=== PATIENT | female | born 1985 | race Caucasian/White ===

== ENCOUNTER 2024-01-06 05:38 | Day surgery (SDC) | payer MEDICARE, MEDICAID ==
[2024-01-04 15:04] LABS: BILIRUBIN,URINE NEGATIVE (Neg); CLARITY,URINE SLIGHTLY CLOUDY (Clear); COLOR,URINE YELLOW (Yellow); GLUCOSE, URINE NEGATIVE (Neg); KETONES,URINE TRACE mg/dl (Neg); LEUKOCYTE ESTERASE ,URINE NEGATIVE (Neg); NITRITES, URINE NEGATIVE (Neg); OCCULT BLOOD,URINE NEGATIVE (Neg); PH,URINE 6.5 (4.8-8.0); PROTEIN,URINE NEGATIVE (Neg)
[2024-01-04 15:05] LABS: BASOPHILS # (AUTO) 0.1 X10'3 (0-0.2); BASOPHILS % (AUTO) 0.7 % (0-1); EOSINOPHILS # (AUTO) 0.2 X10'3 (0-0.9); EOSINOPHILS % (AUTO) 1.9 % (0-6); LYMPHOCYTES # (AUTO) 4.2 X10'3 (1.1-4.8); LYMPHOCYTES % (AUTO) 48.5 % (21-51); MEAN CORPUSCULAR HEMOGLOBIN 29.4 PG (27.0-31.0); MEAN CORPUSCULAR HGB CONC 34.7 g/dL (33.0-36.5); MEAN CORPUSCULAR VOLUME 84.8 FL (78-98); MEAN PLATELET VOLUME 8.4 FL (7.4-10.4); MONOCYTES # (AUTO) 0.6 X10'3 (0-0.9); MONOCYTES % (AUTO) 7.4 % (2-12); NEUTROPHILS # (AUTO) 3.6 X10'3 (1.8-7.7); NEUTROPHILS % (AUTO) 41.5 % (42-75); PRE OP HEMOGLOBIN 14.6 g/dL (12.0-16.0); PRE OP PLATELET COUNT 227 X10'3 (140-440); PRE OP WHITE BLOOD COUNT 8.7 10'3 (4.8-10.8); RED BLOOD COUNT 4.96 X10'6 (4.20-5.60)
[2024-01-04 15:12] LABS: UA COLLECTION TYPE CLN CATCH MIDSTREAM
[2024-01-04 15:18] LABS: SQUAMOUS EPITHELIAL CELL,UR MANY /LPF (FEW)
[2024-01-04 15:19] LABS: WBC,URINE 30-50 /HPF (0-4)
[2024-01-04 15:24] LABS: ALBUMIN 3.5 G/DL (3.4-5.0); ALBUMIN/GLOBULIN RATIO 0.8 (1.1-1.5); ALKALINE PHOSPHATASE 55 IU/L (46-116); BLOOD UREA NITROGEN 17 MG/DL (7-18); BUN/CREATININE RATIO 15.9 (10.0-20.0); CHLORIDE 107 MMOL/L (99-107); CREATININE 1.07 MG/DL (0.40-0.90); PRE OP ALT 18 U/L (30-65); PRE OP ANION GAP 13 (8-16); PRE OP AST 12 U/L (10-37); PRE OP BILIRUB, TOTAL 0.4 MG/DL (0.0-1.0); PRE OP GLUCOSE 88 MG/DL (70-104); PRE OP POTASSIUM 3.9 MMOL/L (3.4-5.1); PRE OP SODIUM 140 MMOL/L (135-145); TOTAL CARBON DIOXIDE 20.4 MMOL/L (24-32); TOTAL PROTEIN 7.7 G/DL (6.4-8.2); eGFR 57 ML/MIN
[2024-01-04 15:25] LABS: BACTERIA,URINE 2+ /HPF (Neg)
[2024-01-04 15:26] LABS: RBC,URINE NONE SEEN /HPF (0-2)
[~2024-01-06] VITALS: Ht 154.9 cm; Wt 102.4 kg
[2024-01-06] VITALS (16 sets, daily range): BP systolic 103–119; BP diastolic 60–79; PULSE 64–88; RESP 14–30; TEMP 98.6; O2SAT 98–100
[~2024-01-06 05:38] MED LIST: ALBU8HFA INH; BUDE10.2 INH; CYCL-1 PO; DIAZ10TA5 PO; DOCU100C40 PO; DOCUMENT DATE & TIME OF BETA-BLOCKER PO ONE; FLUO20CA39 PO; IPRA4AER IH; KETAMINE IV; LAMO25TA5 PO; METO50TA16 PO; NORE-142 PO; PRAZ5CAP2 PO; QUET200T31 PO; QUET400T13 PO; TOPI-95 PO; ZOLP5TAB2 PO; albuterol 2.5 MG/3 ML nebule NEB ONE
[2024-01-06] MEDS: famotidine 20mg tablet PO ONE (06:26)
[2024-01-06] MEDS: clindamycin-Cleocin 900mg/D5W 50 ML IV ONE (06:27)
[2024-01-06] MEDS: ringers solution, lacted 1,000 ML IV SCH (06:27)
[2024-01-06 06:54] LABS: BILIRUBIN,URINE NEGATIVE (Neg); CLARITY,URINE SLIGHTLY CLOUDY (Clear); COLOR,URINE YELLOW (Yellow); GLUCOSE, URINE NEGATIVE (Neg); KETONES,URINE TRACE mg/dl (Neg); LEUKOCYTE ESTERASE ,URINE NEGATIVE (Neg); NITRITES, URINE NEGATIVE (Neg); OCCULT BLOOD,URINE NEGATIVE (Neg); PH,URINE 6.5 (4.8-8.0); PROTEIN,URINE NEGATIVE (Neg); UROBILINOGEN,URINE 0.2 E.U/dL (0.2-1.0)
[2024-01-06 07:11] LABS: SQUAMOUS EPITHELIAL CELL,UR MANY /LPF (FEW)
[2024-01-06 07:12] LABS: BACTERIA,URINE 1+ /HPF (Neg)
[2024-01-06 07:13] LABS: RBC,URINE 0-2 /HPF (0-2)
[2024-01-06 07:14] LABS: FINE GRANULAR CAST 0-3 /LPF (NEGATIVE)
[2024-01-06 07:15] LABS: TRANSITIONAL EPI CELLS,URINE FEW /HPF
[2024-01-06] MEDS ORDERED: BUPIVAcaine 2.5mg/ml inj 50ml vial (contains preservative) ONE (07:15)
[2024-01-06 07:20] LABS: UA COLLECTION TYPE CLN CATCH MIDSTREAM
[2024-01-06] MEDS ORDERED: sevoflurane 250ml liquid IH ONE (08:27)
[2024-01-06] MEDS ORDERED: fentaNYL/PF 50MCG/1 ML 2ML syringe ONE (08:39)
[2024-01-06] MEDS ORDERED: MIDAZolam 1 MG/ML 5ML VIAL ONE (08:39)
[2024-01-06] MEDS ORDERED: BUPIVAcaine/PF 7.5mg/ml (0.75%) 10ml vial ONE (09:11)
[2024-01-06] MEDS ORDERED: ROPIVAcaine 0.5% (5mg/ml) 30ml vial ONE (09:11)
[2024-01-06] MEDS ORDERED: LIDOcaine 1%/PF 5ML 10 MG/ML VIAL ONE (09:11)
[2024-01-06] MEDS ORDERED: propofol inj 20 ML IV ONE (09:11)
[2024-01-06] MEDS ORDERED: dexamethasone sod phosphate 4mg/ml inj. ONE (09:11)
[2024-01-06] MEDS: bacitracin 15gm ointment TP ONE (09:54)
[2024-01-06] MEDS ORDERED: labetalol 20mg/4ml (5mg/ml) syringe IV PRN (09:55)
[2024-01-06] MEDS ORDERED: morphine 2 MG/ML inj. syringe IV PRN (09:55)
[2024-01-06] MEDS ORDERED: meperidine/PF 25mg/ml syringe IV PRN ×3 (09:55)
[2024-01-06] MEDS ORDERED: enalaprilat dihydrate 2.5mg/2ml vial IV PRN (09:55)
[2024-01-06] MEDS ORDERED: ondansetron/PF 4mg/2ml inj IV PRN (09:55)
[2024-01-06] MEDS ORDERED: ringers solution, lacted 1,000 ML IV SCH (09:55)
[2024-01-06] MEDS ORDERED: proCHLORperazine 10 MG/2 ml inj IV PRN (09:55)
[2024-01-06] MEDS ORDERED: morphine 4 MG/ML inj SYRINge IV PRN (09:55)
[2024-01-06] MEDS ORDERED: ondansetron/PF 4mg/2ml inj ONE (10:35)
== END 2024-01-06 12:43 | disposition home or self-care (01) ==
LOC: PAS 05:38
PROVIDERS: ATTEND Podiatrist Foot & Ankle Surgery
DX: M25.372 Other instability, left ankle (principal); M94.272 Chondromalacia, left ankle and joints of left foot; M65.872 Other synovitis and tenosynovitis, left ankle and foot; G89.18 Other acute postprocedural pain; E66.01 Morbid (severe) obesity due to excess calories; J45.909 Unspecified asthma, uncomplicated; M79.7 Fibromyalgia; F43.10 Post-traumatic stress disorder, unspecified; F41.9 Anxiety disorder, unspecified; F32.A Depression, unspecified; Z79.1 Long term (current) use of non-steroidal anti-inflammatories (NSAID); Z79.2 Long term (current) use of antibiotics; Z90.49 Acquired absence of other specified parts of digestive tract; Z90.710 Acquired absence of both cervix and uterus; Z98.891 History of uterine scar from previous surgery; Z98.890 Other specified postprocedural states; Z68.41 Body mass index [BMI] 40.0-44.9, adult
CPT/HCPCS: 27695; 29895; 36415; 64447; 73600; 80053; 81001; 82948; 85025; 93005; A6222; C1713; J1100; J2250; J2405; J2704; J2795; J3010; J3490; J7030; J7120; Z7506; Z7508; Z7512; A4618; A6449; A7000